=== PATIENT | female | born 1930 | race Caucasian/White ===

== ENCOUNTER 2017-12-09 12:35 | Emergency (ER) | payer OTHER ==
[2017-12-09 12:57] VITALS: BP 170/54; PULSE 72; TEMP 97.9; BMI 20.4
--- NOTE | 2017-12-09 13:29 | PDOC ---
History of Present Illness - General Chief Complaint: Revisit, Lab Variance Stated Complaint: LAB VARIANCE, PCP SENT FOR ADMIN Time Seen by Provider: 12/09/17 13:06 History Source: Patient Exam Limitations: Dementia - History of Present Illness Initial Comments: 12/09/17 13:54 87-year-old female history of dementia,htn, OA, cateracts some hematologic disorder that she sees Dr. Lizarraga for, was sent to the emergency department for evaluation of abnormal blood work. The patient states that she was getting a medical clearance from a new doctor in anticipation of placement into a [facility] facility, they found that the patient was anemic and also thrombocytopenic. This was only the first time that this evaluated the patient and is unclear the medical history. He does otherwise asymptomatic denies any chest pain, shortness of breath, dizziness, palpitations, nausea, vomiting, abdominal pain, fever, chills, diarrhea, blood in the stool. Patient does endorse increased swelling of the lower extremities for the past several days with some redness that seem to come and go. The patient is otherwise asymptomatic Past History - Past Medical History Allergies/Adverse Reactions: Allergies Allergy/AdvReac Type Severity Reaction Status Date / Time Iodinated Contrast- Oral and Allergy Intermediate Rash Verified 12/09/17 12:50 IV Dye Home Medications: Ambulatory Orders NK [No Known Home Medication] 12/09/17 CVA: No COPD: No HTN: Yes - Immunization History Td Vaccination: No TDAP Vaccination: No Immunization Up to Date: Yes - Suicide/Smoking/Psychosocial Hx Smoking Status: No Smoking History: Never smoked Have you smoked in the past 12 months: No Number of Cigarettes Smoked Daily: 0 Information on smoking cessation initiated: No Hx Alcohol Use: No Drug/Substance Use Hx: No Substance Use Type: None Hx Substance Use Treatment: No Review of Systems - Review of Systems Able to Perform ROS?: Yes (may be limited 2nd syeda) Comments:: 12/09/17 13:57 Constitutional - no reported Fever, Chills, HEENT: no reported vision changes, sore throat Respiratory: no reported cough, sob, hemoptysis Cardiac: no reported chest pain, palpitations, light headedness, leg swelling Abd/GI: no reported abd pain, nausea, vomiting, blood per rectum, melena, diarrhea : no reported dysuria, frequency, discharge Musculskelatal - no reported back pain, joint swelling skin - no reported bruising, erythema, rash neurological: no reported headache, numbness, focal weakness, tingling, ataxia, hematologic: no reported anemia, easy bruising, easy bleeding *Physical Exam - Vital Signs Last Vital Signs Temp Pulse Resp BP Pulse Ox 97.9 F 72 15 170/54 96 12/09/17 12:51 12/09/17 12:51 12/09/17 12:51 12/09/17 12:51 12/09/17 12:51 - Physical Exam Comments: 12/09/17 13:57 GENERAL: The patient is awake, alert, and fully oriented, Nontoxic - in no acute distress. HEAD: Normocephalic, atraumatic. EYES: extraocular movements intact, sclera anicteric, conjunctiva clear. ENT: Normal voice, Moist mucous membranes. NECK: Normal range of motion, supple LUNGS: Breath sounds equal, clear to auscultation bilaterally. No wheezes, no rhonchi, no rales. HEART: Regular rate and rhythm, normal S1 and S2 without murmur, rub or gallop. ABDOMEN: Soft, nontender, normoactive bowel sounds. No guarding, no rebound. No CVA tenderness EXTREMITIES: Normal range of motion, nontender, +1 pitting edema in the bilateral lower extremities, no calf tenderness, no induration, petechical, nonblanching, slightly more swollen iN RLE than LLE NEUROLOGICAL: No facial assymetry, Normal speech, moving all 4 extremities spontaneously and symmetrically PSYCH: Normal mood, normal affect. SKIN: Warm, Dry, normal turgor, ED Treatment Course - LABORATORY CBC & Chemistry Diagram: 12/09/17 13:46 12/09/17 13:46 Medical Decision Making - Medical Decision Making 12/09/17 14:00 87-year-old female history of dementia hypertension osteoporosis, unclear hematologic history presents from [facility] for evaluation of pancytopenia, and is otherwise a symptomatic besides lower extremity edema. Will obtain blood work will discuss with her primary care doctor regarding the patient's previous results and hematologic history Obtain duplex to rule out DVT Her lower external exam is unlikely cellulitis 12/09/17 14:[address] Lizarraga (Hematology) - notes the pt has hx of myelodisplasia - typical labs for pt - wbc ~2.5, hct in the 9s, platelets in the 50s-70s is currently being treated with procrit, and is actively following the patint. will notify dr. trejo 12/09/17 15:[address] trejo agree with management will dc with pmd fu as outpaitient. I discussed the physical exam findings, ancillary test results and final diagnoses with the patient. I answered all of the patient's questions. The patient was satisfied with the care received and felt comfortable with the discharge plan and treatment plan. The patient will call their primary care physician within 24 hours to arrange follow-up and will return to the Emergency Department with any new, persistent or worsening symptoms. 12/09/17 15:34 dvt studny negative *DC/Admit/Observation/Transfer Diagnosis at time of Disposition: Myelodysplastic disease - Discharge Dispostion Disposition: HOME Condition at time of disposition: Stable Admit: No - Referrals Referrals: Karina Trejo MD [Primary Care Provider] - - Patient Instructions Additional Instructions: Please follow up with dr. Trejo and dr. Lizarraga. I discussed the physical exam findings, ancillary test results and final diagnoses with the patient. I answered all of the patient's questions. The patient was satisfied with the care received and felt comfortable with the discharge plan and treatment plan. The patient will call their primary care physician within 24 hours to arrange follow-up and will return to the Emergency Department with any new, persistent or worsening symptoms. Print Language: [facility] - Post Discharge Activity
[2017-12-09 13:55] LABS: HEMATOCRIT 27.9 % (32.4-45.2); HEMOGLOBIN 8.5 GM/dL (10.7-15.3); MCH 23.2 pg (25.7-33.7); MCHC 30.5 g/dl (32.0-36.0); MEAN CELL VOLUME 76.2 fl (80-96); MEAN PLT VOLUME 9.2 fl (7.5-11.1); PLATELET COUNT 108 K/MM3 (134-434); RBC 3.65 M/mm3 (3.60-5.2); RDW 18.3 % (11.6-15.6); WHITE BLOOD COUNT 3.1 K/mm3 (4.0-10.0)
[2017-12-09 14:21] LABS: ALBUMIN 2.6 g/dl (3.4-5.0); ANION GAP 5 (8-16); BILIRUBIN,TOTAL 0.5 mg/dL (0.2-1.0); BLOOD UREA NITROGEN 12 mg/dL (7-18); CHLORIDE 111 mmol/L (98-107); CO2 27 mmol/L (21-32); CREATININE 0.6 mg/dL (0.55-1.02); GLUCOSE,RANDOM 90 mg/dL (74-106); POTASSIUM 3.9 mmol/L (3.5-5.1); SGPT/ALT 49 U/L (12-78); SODIUM 143 mmol/L (136-145); TOT PROT 6.9 g/dl (6.4-8.2)
[2017-12-09 14:24] LABS: INR 1.22 (0.82-1.09); PROTHROMBIN TIME (PATIENT) 13.8 SEC (9.98-11.88)
--- NOTE | 2017-12-09 15:11 | EKG ---
Test Reason : Blood Pressure : / mmHG Vent. Rate : 072 BPM Atrial Rate : 072 BPM P-R Int : 146 ms QRS Dur : 084 ms QT Int : 442 ms P-R-T Axes : 065 -16 033 degrees QTc Int : 483 ms NORMAL SINUS RHYTHM NORMAL ECG WHEN COMPARED WITH ECG OF 15-AUG-1999 10:24, NO SIGNIFICANT CHANGE WAS FOUND Confirmed by MD JEANNETTE, JADA ([id number]) on 12/09/2017 3:10:50 PM Referred By: Confirmed By:JADA MACHADO MD
[2017-12-09 15:17] LABS: PLATELET ESTIMATE DECREASED
[2017-12-09 15:44] LABS: ALK PHOS 183 U/L (45-117); SGOT/AST 108 U/L (15-37)
== END 2017-12-09 15:52 | disposition home or self-care (01) ==
LOC: JER 12:35
DX: D61.818 Other pancytopenia (principal); D46.9 Myelodysplastic syndrome, unspecified; I10 Essential (primary) hypertension; F03.90 Unspecified dementia, unspecified severity, without behavioral disturbance, psychotic disturbance, mood disturbance, and anxiety; M19.90 Unspecified osteoarthritis, unspecified site; R60.0 Localized edema
CPT/HCPCS: 36415; 71045-TC; 80053; 85025; 85610; 86850; 86900; 86901; 87040; 93005; 93010; 93970-TC; 99282-25